=== PATIENT | female | born 1935 | race Two or more races ===

== ENCOUNTER 2024-08-05 22:54 | Inpatient (IN) | payer OTHER, MEDICAID ==
[~2024-08-05] VITALS: Ht 149.9 cm; Wt 98.0 kg
--- NOTE | 2024-08-05 23:16 | ED.PDOC ---
History of Present Illness HPI Comments 88-year-old female who came to ER via EMS for generalized weakness. Per EMS, patient was picked up at home, and does have history of AFib, HTN, diabetes and dementia. Pt. did take her blood pressure meds today. Pt. utilizes a beta marilu. Was noted by family members that for the past 2 days, patient has been generally weak, with episodes of nausea vomiting, diarrhea and loss of appetite. Was noted to be hypotensive and bradycardic. Upon arrival patient was 40s beats per minute and blood sugar on scene was 118 Chief Complaint: General Weakness Time Seen by MD: 23:16 Reviewed Notes: Nurses Notes, Copy Lathe Tender Notes Allergies: Coded Allergies: Vancomycin (Verified Allergy, Unknown, 08/05/24) Information Source: Patient, Emergency Med Personnel Mode of Arrival: EMS Severity: Moderate Timing: Days Duration: Since onset Prehospital treatment: None Past Medical History PAST MEDICAL HISTORY: AFIB, Dementia, DM, HTN Surgical History: Denies all surgeries TAX AGENT History: Denies all TAX AGENT Hx Family History Family History: Reviewed,noncontributory to illness Social History Smoker: Non-Smoker Alcohol: Denies ETOH Use Drugs: Denies Drug Use Lives In: Home Constitutional: reports: fatigue, weakness; denies: chills, diaphoresis, fever, malaise, sweats, others EENTM: denies: blurred vision, double vision, ear bleeding, ear discharge, ear drainage, ear pain, ear ringing, eye pain, eye redness, hearing loss, mouth pain, mouth swelling, nasal discharge, nose bleeding, nose congestion, nose pain, photophobia, tearing, throat pain, throat swelling, voice changes, others Respiratory: denies: cough, hemoptysis, orthopnea, SOB at rest, shortness of breath, SOB with excertion, stridor, wheezing, others Cardiovascular: denies: chest pain, dizzy spells, diaphoresis, Dyspnea on exertion, edema, irregular heart beat, left arm pain, lightheadedness, palpitations, PND, syncope, others Gastrointestinal: reports: diarrhea, nausea, vomiting; denies: abdomen distended, abdominal pain, blood streaked bowels, constipated, dysphagia, difficulty swallowing, hematemesis, melena, poor appetite, poor fluid intake, rectal bleeding, rectal pain, others Genitourinary: denies: abnormal vagina bleeding, burning, dyspareunia, dysuria, flank pain, frequency, hematuria, incontinence, pain, , vagina discharge, urgency, others Neurological: denies: dizziness, fainting, headache, left sided numbness, left sided weakness, numbness, paresthesia, pre-existing deficit, right sided numbness, right sided weakness, seizure, speech problems, tingling, tremors, weakness, others Musculoskeletal: denies: back pain, gout, joint pain, joint swelling, muscle pain, muscle stiffness, neck pain, others Integumetry: denies: bruises, change in color, change in hair/nails, dryness, laceration, lesions, lumps, rash, wounds, others Allergic/Immunocompromised: denies: Difficulty Healing, Frequent Infections, Hives, Itching, others Hematologic/Lymphatic: denies: anemia, blood clots, easy bleeding, easy bruising, swollen glands, others Endocrine: denies: excessive hunger, excessive sweating, excessive thirst, excessive urination, flushing, intolerance to cold, intolerance to heat, unexplained weight gain, unexplained weight loss, others Psychiatric: denies: anxiety, bipolar disorder, depression, hopeless, panic disorder, schizophrenia, sleepless, suicidal, others Unable to Obtain due to: Dementia Physical Exam General Appearance: Moderate Distress (Pt. apears ill at time of evaluation. A&O times 3. Pt. is lethargic), Normal HEENT: Normal ENT Inspection, Pharynx Normal, TMs Normal Neck: Full Range of Motion, Non-Tender, Normal, Normal Inspection Respiratory: Chest Non-Tender, Lungs Clear, No Accessory Muscle Use, No Respiratory Distress, Normal Breath Sounds Cardiovascular: Bradycardia, No Edema, No JVD, No Murmur, No Gallop, Normal Peripheral Pulses Breast Exam: Deferred Gastrointestinal: No Organomegaly, Non Tender, No Pulsatile Mass, Normal Bowel Sounds, Soft Genitalia: Deferred Pelvic: Deferred Rectal: Deferred Extremities: No calf tenderness, Normal capillary refill, Normal inspection, Normal range of motion, Non-tender, No pedal edema Musculoskeletal : Apperance: Normal Neurologic: Depressed Affect Cerebellar Function: NOT DONE Reflexes: NOT DONE Skin: Dry, Normal Color, Warm Lymphatic: No Adenopathy Was a procedure done? Was a procedure done?: No EKG EKG : Cardiac Rhythm: Afib Differential Dx Considerations may include: Anemia, electrolyte imbalance, urinary tract infection, hypotension, dehydration, dementia, generalized weakness, hypotension, Afib X-Ray, Labs, Meds, VS Vital Signs Date Time Temp Pulse Resp B/P (MAP) Pulse Ox O2 Delivery O2 Flow Rate FiO2 08/06/24 02:00 49 15 124/46 (72) 96 08/06/24 01:00 50 17 115/45 (68) 99 08/06/24 00:00 43 18 107/56 (73) 98 08/05/24 23:51 56 08/05/24 23:23 43 13 99 Room Air* 0 21 08/05/24 23:23 97.9 43 13 102/38 (59) 99 97.9 08/05/24 23:03 47 08/05/24 22:54 97.5 48 16 138/47 (77) 100 Lab Test 08/06/24 00:10 08/05/24 23:29 Range/Units Troponin I High Sensitivity 13 15 </=34 ng/L White Blood Count 13.1 H 4.4-10.8 10^3/uL Red Blood Count 4.71 4.0-5.20 10^6/uL Hemoglobin 15.3 12.2-16.2 g/dL Hematocrit 45.2 36.0-46.0 % Mean Corpuscular Volume 95.8 80.0-100.0 fL Mean Corpuscular Hemoglobin 32.5 H 28.0-32.0 pg Mean Corpuscular Hemoglobin Concent 33.9 32.0-36.0 g/dL Red Cell Distribution Width 15.9 H 11.8-14.3 % Platelet Count 156 140-450 10^3/uL Mean Platelet Volume 9.7 6.9-10.8 fL Neutrophils (%) (Auto) 54.7 37.0-80.0 % Lymphocytes (%) (Auto) 31.6 10.0-50.0 % Monocytes (%) (Auto) 9.0 0.0-12.0 % Eosinophils (%) (Auto) 3.9 0.0-7.0 % Basophils (%) (Auto) 0.8 0.0-2.0 % Neutrophils # (Auto) 7.2 1.6-8.6 10 ^3/uL Lymphocytes # (Auto) 4.1 0.4-5.4 10 ^3/uL Monocytes # (Auto) 1.2 0-1.3 10 ^3/uL Eosinophils # (Auto) 0.5 0-0.8 10 ^3/uL Basophils # (Auto) 0.1 0-0.2 10 ^3/uL Nucleated Red Blood Cells 0.1 % Sodium Level 143 136-145 mmol/L Potassium Level 3.3 L 3.5-5.1 mmol/L Chloride Level 109 H 98-107 mmol/L Carbon Dioxide Level 29 20-31 mmol/L Anion Gap 5 5-15 Blood Urea Nitrogen 23 9-23 mg/dL Creatinine 1.37 H 0.550-1.02 mg/dL Glomerular Filtration Rate Calc 37 >90 mL/min BUN/Creatinine Ratio 16.8 10.0-20.0 Serum Glucose 101 74-106 mg/dL Lactic Acid Level 1.9 0.4-2.0 mmol/L Calcium Level 9.4 8.7-10.4 mg/dL Total Bilirubin 1.8 H 0.2-1.0 mg/dL Aspartate Amino Transferase (AST) 23 13-40 U/L Alanine Aminotransferase (ALT) 19 7-40 U/L Alkaline Phosphatase 113 46-116 U/L B-Type Natriuretic Peptide 174.14 0-100 pg/mL Total Protein 6.3 5.7-8.2 g/dL Albumin 3.7 3.2-4.8 g/dL Lipase 141 H 12-53 U/L Current Medications Medications (Trade) Dose Ordered Sig/Gianna Route Start Time Stop Time Status Last Admin Sodium Chloride 1,000 ml @ 150 mls/hr Q6H40M ONCE IV 08/05/24 23:15 08/06/24 05:54 08/05/24 23:34 CHEST RADIOGRAPH FINDINGS: Lines and Tubes: None Lungs: Clear Pleura: No effusion. No pneumothorax. Cardiomediastinal contours: Unremarkable Bones: Unremarkable IMPRESSION: 1. No acute disease. X-Ray, Labs, Meds, VS Comment All studies performed at the ED today were reviewed by me personally. EKG showed a bradycardic Afib with possible ischemia. Rate of 47 with a QT interval of 545. No ST elevation. Laboratories were relatively unremarkable nwith a mild elev. WBC and Lipase. CT of abdomen pending at time of this note. CXR was unremarkable for any consolidation or intrapulmonary concerns. Pt. will be admitted for bradycardia and general weakness concerns. Patient VS were discussed with Dr. Martinez. No intervention at this time. CT abdomen will be reviewed by Dr. Martinez when returned. Time of 1ST Reevaluation: 02:31 Reevaluation 1ST: Unchanged Consultation: PCP, Cardiology Patient Education/Counseling: Diagnosis, Treatment, Other (Patient has dementia) Family Education/Counseling: Diagnosis, Treatment, No Family Present Departure 1 Departure Time of Disposition: 02:33 Impression: Primary Impression: Bradycardia Additional Impression: General weakness Disposition: ADMITTED INPATIENT Condition: Fair Discharged With: Self, Relative Critical Care Note Critical Care Time?: No Stability Stability form required: No Heart Score Heart Score: Heart Score Response (Comments) Value History Moderate Suspicious 1 EKG Repolarization Disturb 1 Age >65 2 Risk Factors >3 or Hx ASHD 2 Troponin Normal limit 0 Total 6 I personally scribed for UMM MADRID PAC ([email or web address]) on 08/05/24 at 23:16. Electronically submitted by Meng Schuler ([email or web address]). I personally scribed for UMM MADRID PAC ([email or web address]) on 08/06/24 at 00:28. Electronically submitted by Meng Schuler ([email or web address]). UMM MADRID PAC Aug 05, 2024 23:16
[2024-08-05 23:23] VITALS: PULSE 43; RESP 13; O2SAT 99
[2024-08-05] MEDS: SODIUM CHLORIDE 0.9% 1,000 ML IV ONE (23:34)
[2024-08-05 23:46] LABS: Basophils # (auto) 0.1 10 ^3/uL (0-0.2); Basophils % (auto) 0.8 % (0.0-2.0); Eosinophils # (auto) 0.5 10 ^3/uL (0-0.8); Eosinophils % (auto) 3.9 % (0.0-7.0); Hematocrit 45.2 % (36.0-46.0); Hemoglobin 15.3 g/dL (12.2-16.2); Lymphocytes # (auto) 4.1 10 ^3/uL (0.4-5.4); Lymphocytes % (auto) 31.6 % (10.0-50.0); Mean Corpuscular Hemoglobin 32.5 pg (28.0-32.0); Mean Corpuscular Hgb Conc. 33.9 g/dL (32.0-36.0); Mean Corpuscular Volume 95.8 fL (80.0-100.0); Monocytes # (auto) 1.2 10 ^3/uL (0-1.3); Neutrophils # (auto) 7.2 10 ^3/uL (1.6-8.6); Neutrophils % (auto) 54.7 % (37.0-80.0); Nucleated Red Blood Cells % 0.1 %; Platelet Count (auto) 156 10^3/uL (140-450); Red Blood Cells 4.71 10^6/uL (4.0-5.20); Red Cell Distribution Width 15.9 % (11.8-14.3); White Blood Cell 13.1 10^3/uL (4.4-10.8)
[2024-08-06] VITALS (11 sets, daily range): BP systolic 113–133; BP diastolic 52–59; PULSE 37–65; RESP 12–20; TEMP 97.3–98.4; O2SAT 95–99
--- NOTE | 2024-08-06 00:09 | DVH ---
CHEST RADIOGRAPH Indication:SOB Technique: Single frontal view of the chest was obtained COMPARISON: None FINDINGS: Lines and Tubes: None Lungs: Clear Pleura: No effusion. No pneumothorax. Cardiomediastinal contours: Unremarkable Bones: Unremarkable IMPRESSION: 1. No acute disease.
[2024-08-06 00:11] LABS: Alanine Aminotransferase 19 U/L (7-40); Albumin 3.7 g/dL (3.2-4.8); Alkaline Phosphatase 113 U/L (46-116); Anion Gap 5 (5-15); Aspartate Aminotransferase 23 U/L (13-40); BUN/Creatinine Ratio 16.8 (10.0-20.0); Bilirubin, Total 1.8 mg/dL (0.2-1.0); Blood Urea Nitrogen 23 mg/dL (9-23); Calcium 9.4 mg/dL (8.7-10.4); Carbon Dioxide 29 mmol/L (20-31); Chloride 109 mmol/L (98-107); Glucose 101 mg/dL (74-106); Lipase 141 U/L (12-53); Potassium 3.3 mmol/L (3.5-5.1); Sodium 143 mmol/L (136-145); Total Protein 6.3 g/dL (5.7-8.2)
[2024-08-06] MEDS ORDERED: ONDANSETRON HCL 4 MG/2 ML VIAL IV PRN (03:00)
[2024-08-06] MEDS ORDERED: NITROGLYCERIN 0.4 MG SL TAB SL PRN (03:00)
[2024-08-06] MEDS ORDERED: MORPHINE SULFATE INJ 2 MG/ml SYRG IV PRN (03:00)
[2024-08-06] MEDS ORDERED: DOCUSATE SOD 100 MG CAP PO PRN (03:00)
[2024-08-06] MEDS ORDERED: ACETAMINOPHEN 325 MG TAB PO PRN (03:00)
[2024-08-06] MEDS ORDERED: DEXTROSE (50%) 50ML SYRG IV PRN (03:00)
--- NOTE | 2024-08-06 03:01 | DVHHP2 ---
History of Present Illness Reason for Visit: Generalized weakness History of Present Illness The patient is a 88-year-old female with past medical history of AFib, dementia, DM, and hypertension who presented to [facility] ED for evaluation of generalized weakness. Patient was noted by family for the past 2 days with generalized weakness, episodes of nausea, vomiting, diarrhea, loss of appetite, getting worse today that prompted this visit. Patient was seen and evaluated in the ED, laboratory data shows WBC 13.1, platelets 156, sodium 143, potassium 3.3, BUN 23, creatinine 1.37, glucose 101, troponin 15, total bilirubin 1.8, BNP 174.14, lipase 141, blood pressure 124/46, heart rate 50, temperature 97.9 F, O2 saturation 96% on room air. Chest x-ray show no acute disease. On my assessment, patient denies chest pain, no headache, no dizziness, no diaphoresis, no shortness a breath, no nausea, no vomiting, no fever, no chills. Patient was admitted for further evaluation and medical management. Past Medical History AFIB, Dementia, DM, HTN Past Surgical History Denies all surgeries Family History Reviewed, noncontributory to the management of this case. Past Social History The patient lives at home, denies smoking, alcohol or illicit drugs abuse. Review of Systems Constitutional: Yes: Weakness, Other (Fatigue); No: Fever, Chills, Sweats, Malaise Eyes: No: Pain, Vision change, Conjunctivae inflammation, Eyelid inflammation, Other, Redness ENT: No: Ear pain, Ear discharge, Nose pain, Nose discharge, Nose congestion, Mouth pain, Mouth swelling, Throat pain, Throat swelling, Other Respiratory: No: Cough, Dry, Shortness of breath, SOB with excertion, Wheezing, Hemoptysis, Pleuritic Pain, Sputum, Wheezing, Other Cardiovascular: No: Chest Pain, Palpitations, Orthopnea, Paroxysmal Noc. Dyspnea, Edema, Lt Headedness, Other Gastrointestinal: Nausea, Vomiting, Diarrhea; No: Abdominal Pain, Constipation, Melena, Hematochezia, Other Genitourinary: No Dysuria, No Frequency, No Incontinence, No Hematuria, No Retention, No Other Musculoskeletal: No: other, neck pain, shoulder pain, arm pain, back pain, hand pain, leg pain, foot pain Skin: No: Rash, Lesions, Jaundice, Bruising, Other Neurological: No: Weakness, Numbness, Incoordination, Change in speech, Confusion, Seizures, Other Allergies: Coded Allergies: Vancomycin (Verified Allergy, Unknown, 08/05/24) Medications Current Medications Medications Dose Ordered Sig/Gianna Route Start Time Stop Time Status Last Admin Dose Admin Ceftriaxone Sodium 50 ml @ 100 mls/hr DAILY@09 IV 08/06/24 09:00 UNV Donepezil HCl 10 mg HS PO 08/06/24 22:00 UNV Atorvastatin Calcium 10 mg HS PO 08/06/24 22:00 UNV Apixaban 2.5 mg BID PO 08/06/24 10:00 UNV Diagnostic Test (Pha) 1 strip ACHS 08/06/24 07:00 UNV Insulin Human Regular ACHS SC 08/06/24 07:00 UNV Dextrose 50 ml UD PRN IV 08/06/24 03:00 UNV Sodium Chloride 10 ml Q8HR IV 08/06/24 06:00 UNV Acetaminophen/ Hydrocodone Bitart 1 tab Q4HP PRN PO 08/06/24 03:00 UNV Ondansetron HCl 4 mg Q4HP PRN IV 08/06/24 03:00 UNV Docusate Sodium 100 mg BIDPRN PRN PO 08/06/24 03:00 UNV Acetaminophen 650 mg Q6HP PRN PO 08/06/24 03:00 UNV Nitroglycerin 0.4 mg Q5MINP PRN SL 08/06/24 03:00 UNV Morphine Sulfate 2 mg Q30M PRN IV 08/06/24 03:00 UNV Exam Vital Signs Vital Signs Date Time Temp Pulse Resp B/P (MAP) Pulse Ox O2 Delivery O2 Flow Rate FiO2 08/06/24 02:00 49 15 124/46 (72) 96 08/05/24 23:23 Room Air* 0 21 08/05/24 23:23 97.9 97.9 General Appearance: Alert, Oriented X3, Cooperative, No acute distress HEENT: Atraumatic, PERRLA, EOMI, Mucous membr. moist/pink Respiratory: Clear to auscultation, Normal air movement Cardiovascular: Regular rate, Normal S1, Normal S2, No murmurs Abdominal: Normal bowel sounds, Soft, No tenderness, No hepatospenomegaly, No masses Extremities: No clubbing, No cyanosis, No edema, Normal pulses, No tenderness/swelling Skin: No rashes, No breakdown, No significant lesion Neuro: Normal speech, Normal tone, Sensation intact, Cranial nerves 3-12 NL, Reflexes 2+, Other (Generalized weakness) Psych/Mental Status: Mental status NL, Mood NL Labs/Xrays Labs Test 08/06/24 00:10 08/05/24 23:29 Range/Units Troponin I High Sensitivity 13 </=34 ng/L White Blood Count 13.1 H 4.4-10.8 10^3/uL Red Blood Count 4.71 4.0-5.20 10^6/uL Hemoglobin 15.3 12.2-16.2 g/dL Hematocrit 45.2 36.0-46.0 % Mean Corpuscular Volume 95.8 80.0-100.0 fL Mean Corpuscular Hemoglobin 32.5 H 28.0-32.0 pg Mean Corpuscular Hemoglobin Concent 33.9 32.0-36.0 g/dL Red Cell Distribution Width 15.9 H 11.8-14.3 % Platelet Count 156 140-450 10^3/uL Mean Platelet Volume 9.7 6.9-10.8 fL Neutrophils (%) (Auto) 54.7 37.0-80.0 % Lymphocytes (%) (Auto) 31.6 10.0-50.0 % Monocytes (%) (Auto) 9.0 0.0-12.0 % Eosinophils (%) (Auto) 3.9 0.0-7.0 % Basophils (%) (Auto) 0.8 0.0-2.0 % Neutrophils # (Auto) 7.2 1.6-8.6 10 ^3/uL Lymphocytes # (Auto) 4.1 0.4-5.4 10 ^3/uL Monocytes # (Auto) 1.2 0-1.3 10 ^3/uL Eosinophils # (Auto) 0.5 0-0.8 10 ^3/uL Basophils # (Auto) 0.1 0-0.2 10 ^3/uL Nucleated Red Blood Cells 0.1 % Sodium Level 143 136-145 mmol/L Potassium Level 3.3 L 3.5-5.1 mmol/L Chloride Level 109 H 98-107 mmol/L Carbon Dioxide Level 29 20-31 mmol/L Anion Gap 5 5-15 Blood Urea Nitrogen 23 9-23 mg/dL Creatinine 1.37 H 0.550-1.02 mg/dL Glomerular Filtration Rate Calc 37 >90 mL/min BUN/Creatinine Ratio 16.8 10.0-20.0 Serum Glucose 101 74-106 mg/dL Lactic Acid Level 1.9 0.4-2.0 mmol/L Calcium Level 9.4 8.7-10.4 mg/dL Total Bilirubin 1.8 H 0.2-1.0 mg/dL Aspartate Amino Transferase (AST) 23 13-40 U/L Alanine Aminotransferase (ALT) 19 7-40 U/L Alkaline Phosphatase 113 46-116 U/L B-Type Natriuretic Peptide 174.14 0-100 pg/mL Total Protein 6.3 5.7-8.2 g/dL Albumin 3.7 3.2-4.8 g/dL Lipase 141 H 12-53 U/L PATIENT: JOCELYN KOHLI DEACCT: [id number] UNIT: [id number] : 1935 LOC: ER ROOM / BED: / AGE / SEX: 88 / F ADM STATUS: REG ER SERVICE 01 ORDERING PHYSICIAN: UMM MADRID PAC PROCEDURE(s): CXRP - CHEST PORTABLE REASON: SOB ORDER NUMBER(s): [id number], ACCESSION NUMBER(s): [id number] CHEST RADIOGRAPH Indication:SOB Technique: Single frontal view of the chest was obtained COMPARISON: None FINDINGS: Lines and Tubes: None Lungs: Clear Pleura: No effusion. No pneumothorax. Cardiomediastinal contours: Unremarkable Bones: Unremarkable IMPRESSION: 1. No acute disease. Assessment/Plan Assessment/Plan Bradycardia Hypokalemia Pancreatitis Leukocytosis, unspecified Generalized weakness Plan 1. Admit to telemetry unit 2. Breathing treatment 3. Pain control management 4. IV antibiotic management 5. Management of fluids and electrolytes 6. Consultation for hospitalist 7. Diagnostic test chest x-ray 8. DVT prophylaxis-on Eliquis 9. Repeat labs CBC, CMP in a.m. 10. Home medication reviewed and reconciled 11. Continue with current medical management 12. Treatment plan discussed with patient and RN. Patient verbalized understanding. Plan discussed with: Patient, Other (RN) My Orders Orders - DRE PABLO DNP Procedure Category Date Status Time Complete Blood Count LAB 08/06/24 Logged 04:00 Comprehensive LAB 08/06/24 Logged Metabolic Panel 04:00 Ceftriaxone 1gm/50ml PHA 08/06/24 Logged D5w (Rocephin) 09:00 Ceftriaxone 1gm/50ml PHA 08/06/24 Logged D5w (Rocephin) 03:00 Potassium Er Tablet PHA 08/06/24 Logged (Klor-Con Tablet) 03:00 Donepezil Tablet PHA 08/06/24 Logged (Aricept Tablet) 22:00 Atorvastatin (Lipitor) PHA 08/06/24 Logged 22:00 Consistent DIET 08/06/24 Transmitted Carb(Ccho)Diabetes Breakfast Apixaban (Eliquis) PHA 08/06/24 Logged 10:00 Glucose Blood PHA 08/06/24 Logged (Accu-Chek Comfort 07:00 Insulin R (Human) PHA 08/06/24 Logged (Insulin R) 07:00 Dextrose 50% Syringe PHA 08/06/24 Logged 03:00 Admit ADMIT 08/06/24 Transmitted 02:46 Allergies JONATHAN 08/06/24 In Process 02:46 Code Status CODE 08/06/24 Transmitted 02:46 Sodium Chloride Lock PHA 08/06/24 Logged (Saline Lock Ns) 06:00 Oxygen Per Hour RT 08/06/24 Transmitted 02:46 Hydrocodone-Acet PHA 08/06/24 Logged 5/325mg Tab (Kelso 03:00 Ondansetron Hcl PHA 08/06/24 Logged (Zofran) 03:00 Docusate Sodium PHA 08/06/24 Logged Capsule (Colace 03:00 Fall Risk Precautions JONATHAN 08/06/[address] 02:46 Complete Blood Count LAB 08/07/24 Verified 04:00 Comprehensive LAB 08/07/24 Verified Metabolic Panel 04:00 Condition: Serious JONATHAN 08/06/24 In Process 02:46 Acetaminophen Tablet PHA 08/06/24 Logged (Tylenol Tablet) 03:00 Sequential JONATHAN 08/06/24 In Process Compression Device Nitroglycerin PHA 08/06/24 Logged Sublingual (Ntrostat 03:00 Morphine Sulfate PHA 08/06/24 Logged Injection 03:00 Notify Of Changes JONATHAN 08/06/24 In Process From Base 02:46 Computer Laboratory Technician For JONATHAN 08/06/24 In Process 24 Hours 02:46 Emergency Dysrhythmia [facility] 08/06/24 In Process Protocol 02:46 Rhythm Strips Once [facility] 08/06/24 In Process Every Shift 02:46 Oxygen By Nasal RT 08/06/24 Transmitted Cannula 02:46 Problem List: (1) Bradycardia (2) Leukocytosis, unspecified (3) Pancreatitis (4) Hypokalemia (5) Generalized weakness Date of Service: Aug 06, 2024 Billing Provider: DRE PABLO DNP Common Visit Codes: [id number] INP/OBS CARE (HIGH) DRE PABLO DNP Aug 06, 2024 03:01
[2024-08-06] MEDS: cefTRIAXone 1GM/50ML D5W 50 ML IV ONE (03:31)
[2024-08-06] MEDS: POTASSIUM CHL 20 Meq TABLET PO ONE (03:31)
--- NOTE | 2024-08-06 04:04 | DVH ---
Examination: ABPL CLINICAL INDICATION:elevated lipase COMPARISON: None. CONTRAST USED: None. TECHNIQUE: Plain CT study of the abdomen and pelvis was performed using 5 mm thin slices, with ALARA (As Low as Reasonably Achievable) protocol. Multiplanar reconstructions were obtained. FINDINGS: CT ABDOMEN Lung Bases: No focal infiltrates or pleural effusion. Borderline cardiomegaly. Subsegmental atelec tasis in bilateral lower lobes, left more than right. Liver: Normal size and attenuation. No focal liver lesions or intrahepatic biliary dilatation. Gallbladder: Appears unremarkable. No intraluminal pathology. Common bile duct is not dilated. Pancreas: Normal in size and shape, without focal lesions. Peripancreatic fat planes are clear. Spleen: Normal size, no focal abnormalities. 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 Retroperitoneum: Adrenal glands are normal in size and morphology. No significant retroperitoneal l ymphadenopathy. Kidneys: Normal in size. No renal calculi or hydronephrosis. Clear perinephric spaces. Vessels: Limited in evaluation; due to lack of intravenous contrast, vessels cannot be adequately as sessed. Atherosclerotic calcification of the abdominal aorta and visceral arteries, infrarenal aorta , and common iliac arteries. IVC is not dilated. Stomach and Bowel: No abnormalities in bowel loops. No ascites. Skeletal System: Mild osteopenia with degenerative changes in the bilateral superolateral hip joints , sacroiliac joints, and lumbar spine. Orthopedic implant in the left femoral neck. Minimal anterol isthesis of L4 over L5. CT PELVIS Appendix: Visualized, appears unremarkable. Bladder: Unremarkable. Reproductive Organs: Uterus and ovaries are atrophic, with no adnexal mass. A small, 7 mm, fat-atte nuation lesion in the uterine fundus, likely a fibroid with fatty degeneration. Tiny air locules in the endometrial cavity. Colon: Short segment concentric wall thickening (10 mm) in the rectum over approximately 5.5 cm with mild perirectal fat stranding. No enlarged perirectal lymph nodes. This may suggest neoplastic thi ckening. Moderate fecal residue in large bowel loops. Small bowel loops are unremarkable, with no signs of ob struction. IMPRESSION: 1. Short segment concentric wall thickening involving the rectum with mild perirectal fat stranding; neoplastic etiology cannot be excluded. Suggest further evaluation with post-contrast scan and colo noscopy correlation. 2. Gallbladder, pancreas and appendix appear unremarkable. No evidence of renal or ureteric calculu s or hydronephrosis. 3. 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 Atherosclerotic calcificatio n of the abdominal aorta and visceral arteries. 4. Atrophic uterus and ovaries. Small probable fibroid with fatty degeneration in the uterine fundu s. 5. Mild osteopenia with degenerative changes in the sacroiliac and hip joints, as well as multilevel lumbar spine arthropathy. Orthopedic implant in the left femoral neck. 6. Subsegmental atelectasis in the bilateral lower lobes, left greater than right. Borderline cardio megaly with scattered coronary artery calcifications. Electronically Signed 08/06/2024 03:56 Becky Ye
[2024-08-06] MEDS: SODIUM CHLOR 0.9% PF (SALINE LOCK) 10ML VIAL/SYR IV SCH (05:40)
[2024-08-06 05:50] LABS: Basophils # (auto) 0.1 10 ^3/uL (0-0.2); Basophils % (auto) 0.9 % (0.0-2.0); Eosinophils # (auto) 0.4 10 ^3/uL (0-0.8); Eosinophils % (auto) 4.1 % (0.0-7.0); Hematocrit 45.6 % (36.0-46.0); Hemoglobin 15.1 g/dL (12.2-16.2); Lymphocytes # (auto) 3.9 10 ^3/uL (0.4-5.4); Lymphocytes % (auto) 35.9 % (10.0-50.0); Mean Corpuscular Hemoglobin 32.1 pg (28.0-32.0); Mean Corpuscular Volume 97.1 fL (80.0-100.0); Monocytes # (auto) 0.9 10 ^3/uL (0-1.3); Monocytes % (auto) 8.5 % (0.0-12.0); Neutrophils # (auto) 5.4 10 ^3/uL (1.6-8.6); Neutrophils % (auto) 50.6 % (37.0-80.0); Nucleated Red Blood Cells % 0.2 %; Platelet Count (auto) 142 10^3/uL (140-450); White Blood Cell 10.7 10^3/uL (4.4-10.8)
[2024-08-06 06:05] LABS: Alanine Aminotransferase 18 U/L (7-40); Albumin 3.4 g/dL (3.2-4.8); Alkaline Phosphatase 108 U/L (46-116); Anion Gap 7 (5-15); Aspartate Aminotransferase 23 U/L (13-40); BUN/Creatinine Ratio 16.1 (10.0-20.0); Bilirubin, Total 1.4 mg/dL (0.2-1.0); Blood Urea Nitrogen 20 mg/dL (9-23); Calcium 9.2 mg/dL (8.7-10.4); Carbon Dioxide 28 mmol/L (20-31); Chloride 110 mmol/L (98-107); Glucose 84 mg/dL (74-106); Potassium 3.4 mmol/L (3.5-5.1); Sodium 145 mmol/L (136-145); Total Protein 6.2 g/dL (5.7-8.2)
[2024-08-06] MEDS: ACCU-CHEK COMFORT CURVE STRIP VI SCH (06:38)
[2024-08-06] MEDS: InsuLIN REG 1unit/0.01ml Soln (100units/ml) SC SCH (06:38)
--- NOTE | 2024-08-06 06:45 | ECG ---
[facility] Test Date: 2024-08-05 Test Time: 23:03:48 Pat Name: JOCELYN KOHLI Department: ER Room: 0204T Gender: F Manager Of Community Relations: CAIO : 1935 Requested By: UMM MADRID Order Number: [id number] Reading MD: Jacky Carter Measurements Intervals Kress Rate: 47 P: 0 IL: 0 QRS: 55 QRSD: 88 T: 143 QT: 545 QTc: 482 Interpretive Statements Atrial fibrillation Ventricular premature complex Repol abnrm suggests ischemia, diffuse leads Electronically Signed On 08-06-2024 9:50:38 PDT by Jacky Carter Please click the below link to view image of tracing.
[2024-08-06 08:39] LABS: Urine Bacteria None Seen /hpf (None Seen)
[2024-08-06 09:09] LABS: Urine Blood Negative /uL (Negative); Urine Clarity Clear (Clear); Urine Color Light-Yellow (Yellow); Urine Hyaline Cast FEW /lpf (0 - 2); Urine Protein, UAD Negative (Negative); Urine Urobilinogen Normal (Negative); Urine WBC 1 /hpf (0 - 5)
[2024-08-06 09:27] LABS: Magnesium 1.9 mg/dL (1.6-2.6)
[2024-08-06 09:41] LABS: INR 1.17 (0.9-1.15); Partial Thromboplastin Time 32.2 SEC (24.5-34.5); Prothrombin Time 12.3 sec (9.3-11.8)
[2024-08-06] MEDS ORDERED: ENOXAPARIN SOD 100 MG/1 ML SYRINGE SC SCH (10:00)
[2024-08-06] MEDS ORDERED: APIXABAN 5 MG TAB PO SCH (10:00)
[2024-08-06] MEDS ORDERED: APIXABAN 2.5 MG TAB PO SCH (10:00)
--- NOTE | 2024-08-06 11:04 | DVHINCON2 ---
Date Seen: Aug 06, 2024 Referring Physician Manjinder Blas NP Reason for Consultation Bradycardia History of Present Illness Fani Bower is a 88-year-old female patient who was brought to the ED because caregiver (son) saw patient had generalized weakness associated with low heart rate and low blood pressure three days before admission. Son also reports the patient has been having yellow nonbloody diarrhea five days prior to her admission, associated with decreased appetite. Obtain indirect history from son since patient has advanced dementia. Could not obtain review of systems due to clinical status of patient. Past medical history: Hypertension, diabetes, dyslipidemia, permanent atrial fibrillation (chads Vasc 5/has bled 3) and history of bilateral DVT under anticoagulation with apixaban, patient is almost completely bed-bound (so can mobilize her with wheelchair), breast cancer treated with radio therapy and c hemotherapy, recent admission due to gastroenteritis symptomatic by constipation (over at [facility]) Surgical history: Left lower limb deep vein Thrombectomy Family history: Two daughters with diabetes at age of 60s Social history: Lives in [place] with son. Denies current tobacco, alcohol and other drug abuse Allergies: Vancomycin (anaphylactic shock) Home medication: Apixaban 5 mg p.o. b.i.d., atorvastatin 20 mg p.o. daily, donepezil 5 mg p.o. daily, escitalopram 5 mg p.o. daily, furosemide 40 mg p.o. b.i.d., insulin glargine 30 units p.m., lisinopril 10 mg p.o. daily, metoprolol 25 mg p.o. daily, nitroglycerin p.r.n. Patient seen and examined at bedside. Currently has no new complaints. Past Medical History Per HPI Past Surgical History Per HPI Family History Per HPI Social History Per [facility] Allergies: Coded Allergies: Vancomycin (Verified Allergy, Unknown, 08/05/24) Current Medications Current Medications Medications (Trade) Dose Ordered Sig/Gianna Route PRN Reason Start Time Stop Time Status Last Admin Ceftriaxone Sodium 50 ml @ 100 mls/hr DAILY@0300 IV 08/07/24 03:00 Donepezil HCl (Aricept Tablet) 10 mg HS PO 08/06/24 22:00 Atorvastatin Calcium (Lipitor) 10 mg HS PO 08/06/24 22:00 Apixaban (Eliquis) 2.5 mg BID PO 08/06/24 10:00 UNV Diagnostic Test (Pha) (Accu-Chek Comfort Curve T) 1 strip ACHS 08/06/24 07:00 08/06/24 06:38 Insulin Human Regular (InsuLIN R) ACHS SC 08/06/24 07:00 Dextrose 50 ml UD PRN IV Blood Sugar LESS THAN 60 08/06/24 03:00 Sodium Chloride (Saline Lock Ns) 10 ml Q8HR IV 08/06/24 06:00 08/06/24 05:40 Acetaminophen/ Hydrocodone Bitart ([place] 5/325MG Tab) 1 tab Q4HP PRN PO MODERATE PAIN (4-6 PAIN SCALE) 08/06/24 03:00 Ondansetron HCl (Zofran) 4 mg Q4HP PRN IV NAUSEA / VOMITING 08/06/24 03:00 Docusate Sodium (Colace Capsule) 100 mg BIDPRN PRN PO FOR CONSTIPATION 08/06/24 03:00 Acetaminophen (Tylenol Tablet) 650 mg Q6HP PRN PO PAIN SCALE 1-3 OR TEMP>100.4 08/06/24 03:00 Nitroglycerin (Ntrostat Sublingual) 0.4 mg Q5MINP PRN SL FOR CHEST PAIN 08/06/24 03:00 Morphine Sulfate 2 mg Q30M PRN IV FOR CHEST PAIN 08/06/24 03:00 Apixaban (Eliquis) 5 mg BID PO 08/06/24 10:00 08/06/24 09:07 DC Enoxaparin Sodium (Lovenox) 80 mg Q12HR SC 08/06/24 10:00 UNV Review of Systems Per HPI Vital Signs Vital Signs Date Time Temp Pulse Resp B/P (MAP) Pulse Ox O2 Delivery O2 Flow Rate FiO2 08/06/24 09:50 57 08/06/24 09:21 Room Air* 0 21 08/06/24 09:20 98.2 20 113/52 (72) 99 98.2 Physical Exam Patient lying in bed, in no acute distress General: So, afebrile, mucosae are moist Cardiovascular: Normal S1 and S2. No murmurs, gallops or rubs Respiratory: Normal ventilation mechanics. Clear lung sounds on auscultation Abdomen: Soft, nontender, no organomegaly, normal bowel sounds MSK/skin: Mobilizes 4 limbs. Skin is dry and warm Neurological: Not oriented in any sphere. No motor no sensitive deficits. Pupils are isocoric and reactive Labs/Diagnostic Data Labs Test 08/06/24 08:19 08/06/24 06:35 08/06/24 05:21 08/06/24 00:10 Range/Units Urine Color Light-yellow Yellow Urine Clarity Clear Clear Urine pH 7.0 5.0-9.0 Urine Specific Alexander 1.010 1.001-1.035 Urine Protein Negative Negative Urine Ketones Negative Negative Urine Blood Negative Negative /uL Urine Nitrite Negative Negative Urine Bilirubin Negative Negative Urine Urobilinogen Normal Negative mg/dL Urine Leukocyte Esterase Negative Negative /uL Urine RBC 3 0 - 4 /hpf Urine WBC 1 0 - 5 /hpf Urine Squamous Epithelial Cells Few <5 /hpf Urine Bacteria None seen None Seen /hpf Urine Hyaline Casts Few 0 - 2 /lpf Urine Glucose Normal Normal mg/dL POC Glucose 82 70-106 mg/dl White Blood Count 10.7 4.4-10.8 10^3/uL Red Blood Count 4.70 4.0-5.20 10^6/uL Hemoglobin 15.1 12.2-16.2 g/dL Hematocrit 45.6 36.0-46.0 % Mean Corpuscular Volume 97.1 80.0-100.0 fL Mean Corpuscular Hemoglobin 32.1 H 28.0-32.0 pg Mean Corpuscular Hemoglobin Concent 33.0 32.0-36.0 g/dL Red Cell Distribution Width 16.0 H 11.8-14.3 % Platelet Count 142 140-450 10^3/uL Mean Platelet Volume 9.5 6.9-10.8 fL Neutrophils (%) (Auto) 50.6 37.0-80.0 % Lymphocytes (%) (Auto) 35.9 10.0-50.0 % Monocytes (%) (Auto) 8.5 0.0-12.0 % Eosinophils (%) (Auto) 4.1 0.0-7.0 % Basophils (%) (Auto) 0.9 0.0-2.0 % Neutrophils # (Auto) 5.4 1.6-8.6 10 ^3/uL Lymphocytes # (Auto) 3.9 0.4-5.4 10 ^3/uL Monocytes # (Auto) 0.9 0-1.3 10 ^3/uL Eosinophils # (Auto) 0.4 0-0.8 10 ^3/uL Basophils # (Auto) 0.1 0-0.2 10 ^3/uL Nucleated Red Blood Cells 0.2 % Prothrombin Time 12.3 H 9.3-11.8 sec Prothrombin Time INR 1.17 H 0.9-1.15 Activated Partial Thromboplast Time 32.2 24.5-34.5 SEC Sodium Level 145 136-145 mmol/L Potassium Level 3.4 L 3.5-5.1 mmol/L Chloride Level 110 H 98-107 mmol/L Carbon Dioxide Level 28 20-31 mmol/L Anion Gap 7 5-15 Blood Urea Nitrogen 20 9-23 mg/dL Creatinine 1.24 H 0.550-1.02 mg/dL Glomerular Filtration Rate Calc 42 >90 mL/min BUN/Creatinine Ratio 16.1 10.0-20.0 Serum Glucose 84 74-106 mg/dL Hemoglobin A1c 7.1 H <5.7 % A1C Calcium Level 9.2 8.7-10.4 mg/dL Phosphorus Level 3.0 2.4-5.1 mg/dL Magnesium Level 1.9 1.6-2.6 mg/dL Total Bilirubin 1.4 H 0.2-1.0 mg/dL Aspartate Amino Transferase (AST) 23 13-40 U/L Alanine Aminotransferase (ALT) 18 7-40 U/L Alkaline Phosphatase 108 46-116 U/L Total Protein 6.2 5.7-8.2 g/dL Albumin 3.4 3.2-4.8 g/dL Triglycerides Level 101 < 150 mg/dL Cholesterol Level 127 < 200 mg/dL LDL Cholesterol 67 < 100 mg/dL HDL Cholesterol 44 40-59 mg/dL Vitamin B12 Level 756 211-911 pg/mL Vitamin D 25-Hydroxy 44.2 30.0-100 ng/mL Thyroid Stimulating Hormone (TSH) 1.07 0.55-4.78 uIU/mL Troponin I High Sensitivity 13 </=34 ng/L Test 08/05/24 23:29 Range/Units Lactic Acid Level 1.9 0.4-2.0 mmol/L B-Type Natriuretic Peptide 174.14 0-100 pg/mL Lipase 141 H 12-53 U/L Assessment Permanent atrial fibrillation with low ventricular response (chads Vasc 5/has bled 3) secondary hypercoagulability state - discontinued negative chronotropic medication History of Bilateral DVT - status post left thrombectomy Probable Gastroenteritis YUMI hemodynamically mediated Hypokalemia secondary to diarrhea Diabetes - uncontrolled (hemoglobin A1c 7.1%) Dyslipidemia Hypertension Dementia - status bed-bound History of breast cancer treated with radiotherapy and chemotherapy History of anaphylaxis secondary to vancomycin Plan/Recommendation Probable cause of AFib LVR secondary to metoprolol. Have had discontinue medication at this time. Patient is currently on telemetry Ordered echocardiogram Replenish electrolytes as needed Evaluate cause of diarrhea. Currently discontinued furosemide, requiring IV fluids. 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 Discussed plan with Dr. Liang, patient, family and nurses: We will continue patient on telemetry, discontinue negative chronotropic medication, on enoxaparin for anticoagulation therapy. Planning on completing washout., if effective we will not indicate beta-blockers as outpatient, if not effective patient may need pacemaker. We will continue to monitor patient. Per son, patient is full code. Plan discussed with: Patient, Son, Other (Nurses) Date of Service: Aug 06, 2024 Billing Provider: RONDA LIANG MD Cardiology Common Codes: [id number] INP/OBS CARE (High), [id number] CARE 30-74 MIN YU HYDE RESIDENT Aug 06, 2024 11:04
--- NOTE | 2024-08-06 12:40 | DVH ---
Bilateral lower extremity venous duplex Clinical History: Lower limb swelling Comparison: None Technique: Duplex Doppler evaluation of the deep venous systems of both lower extremities from the common femora l veins to the popliteal veins including color Doppler and spectral/pulsed waveform analysis was perf ormed. Findings: RIGHT SIDE: The common femoral vein demonstrates appropriate compressibility and waveform variability. There is compressibility/patency of the great saphenous vein at the proximal thigh. The femoral vein demonstrates appropriate compressibility and waveform variability. The deep femoral vein demonstrates appropriate compressibility and waveform variability. The popliteal vein demonstrates appropriate compressibility and waveform variability. There is normal compressibility at the tibioperoneal trunk. LEFT SIDE: The common femoral vein demonstrates appropriate compressibility and waveform variability. There is compressibility/patency of the great saphenous vein at the proximal thigh. The femoral vein demonstrates appropriate compressibility and waveform variability. The deep femoral vein demonstrates appropriate compressibility and waveform variability. The popliteal vein demonstrates appropriate compressibility and waveform variability. There is normal compressibility at the tibioperoneal trunk. Impression: 1. No right or left femoropopliteal venous thrombosis. HS:Y
[2024-08-06 12:55] LABS: Amphetamine Screen, Urine Neg (NEGATIVE); Barbiturate Scree,Urine Neg (NEGATIVE); Benzodiazephine Screen, Urine Neg (NEGATIVE); Cannabinoid Screen, Urine Neg (NEGATIVE); Cocaine Screen, Urine Neg (NEGATIVE); Opiate Scree,Urine Neg (NEGATIVE); Phencyclidine Screen, Urine Neg (NEGATIVE)
[2024-08-06] MEDS: SODIUM CHLORIDE 0.9% 1,000 ML IV SCH (14:22)
[2024-08-06] MEDS: MAGNESIUM OXIDE 400 MG TAB PO ONE (14:24)
[2024-08-06] MEDS: POTASSIUM EFFERVESENT TAB 25 MEQ PO ONE (14:25)
[2024-08-06] MEDS ORDERED: ATOR20TA50 PO (17:34)
[2024-08-06] MEDS ORDERED: APIX5TAB PO (17:34)
[2024-08-06] MEDS ORDERED: DONE5TAB80 PO (17:36)
[2024-08-06] MEDS ORDERED: ESCI1TAB36 PO (17:36)
[2024-08-06] MEDS ORDERED: FURO40TA4 PO (17:37)
[2024-08-06] MEDS ORDERED: METO25TA93 PO (17:40)
[2024-08-06] MEDS ORDERED: NITR0.4O2 PR (17:40)
[2024-08-06] MEDS ORDERED: INSU100I49 SC (17:40)
[2024-08-06] MEDS ORDERED: INSU100I70 SC (17:40)
[2024-08-06] MEDS: DONEPEZIL HYDROCHLORIDE 5 MG TAB PO SCH (21:12)
[2024-08-06] MEDS: ATORVASTATIN 20 MG TAB PO SCH (21:13)
[2024-08-06] MEDS: HYDROcodone-ACET 5/325MG TAB PO PRN (23:29)
[2024-08-07] VITALS (7 sets, daily range): BP systolic 122–153; BP diastolic 36–82; PULSE 56–82; RESP 16–20; TEMP 97.5–98.1; O2SAT 96–98
[2024-08-07] MEDS: MELATONIN 5 MG TAB ONE (00:27)
[2024-08-07] MEDS: MELATONIN 5 MG TAB PO SCH (00:31)
[2024-08-07] MEDS: cefTRIAXone 1GM/50ML D5W 50 ML IV SCH (03:00)
[2024-08-07 08:31] LABS: Basophils # (auto) 0.1 10 ^3/uL (0-0.2); Basophils % (auto) 1.1 % (0.0-2.0); Eosinophils # (auto) 0.2 10 ^3/uL (0-0.8); Eosinophils % (auto) 1.7 % (0.0-7.0); Hematocrit 43.7 % (36.0-46.0); Hemoglobin 14.6 g/dL (12.2-16.2); Lymphocytes # (auto) 2.6 10 ^3/uL (0.4-5.4); Lymphocytes % (auto) 29.2 % (10.0-50.0); Mean Corpuscular Hemoglobin 32.4 pg (28.0-32.0); Mean Corpuscular Hgb Conc. 33.5 g/dL (32.0-36.0); Mean Corpuscular Volume 96.5 fL (80.0-100.0); Monocytes # (auto) 0.9 10 ^3/uL (0-1.3); Monocytes % (auto) 9.7 % (0.0-12.0); Neutrophils # (auto) 5.2 10 ^3/uL (1.6-8.6); Neutrophils % (auto) 58.3 % (37.0-80.0); Nucleated Red Blood Cells % 0.1 %; Platelet Count (auto) 168 10^3/uL (140-450); Red Blood Cells 4.52 10^6/uL (4.0-5.20); Red Cell Distribution Width 15.7 % (11.8-14.3); White Blood Cell 8.9 10^3/uL (4.4-10.8)
[2024-08-07 08:48] LABS: Alanine Aminotransferase 18 U/L (7-40); Albumin 3.7 g/dL (3.2-4.8); Alkaline Phosphatase 117 U/L (46-116); Anion Gap 8 (5-15); Aspartate Aminotransferase 25 U/L (13-40); BUN/Creatinine Ratio 16.2 (10.0-20.0); Bilirubin, Total 1.4 mg/dL (0.2-1.0); Blood Urea Nitrogen 21 mg/dL (9-23); Calcium 9.6 mg/dL (8.7-10.4); Carbon Dioxide 26 mmol/L (20-31); Chloride 109 mmol/L (98-107); Glucose 123 mg/dL (74-106); Sodium 143 mmol/L (136-145); Total Protein 6.6 g/dL (5.7-8.2)
--- NOTE | 2024-08-07 10:03 | DVHDS2 ---
Discharge Summary Date of Admission Aug 06, 2024 at 02:46 Date of Discharge: Aug 07, 2024 Labs/Diagnostic Data: Laboratory Results Test 08/07/24 08:18 08/06/24 21:05 08/06/24 11:08 08/06/24 08:19 White Blood Count 8.9 10^3/uL (4.4-10.8) Red Blood Count 4.52 10^6/uL (4.0-5.20) Hemoglobin 14.6 g/dL (12.2-16.2) Hematocrit 43.7 % (36.0-46.0) Mean Corpuscular Volume 96.5 fL (80.0-100.0) Mean Corpuscular Hemoglobin 32.4 pg (28.0-32.0) Mean Corpuscular Hemoglobin Concent 33.5 g/dL (32.0-36.0) Red Cell Distribution Width 15.7 % (11.8-14.3) Platelet Count 168 10^3/uL (140-450) Mean Platelet Volume 9.4 fL (6.9-10.8) Neutrophils (%) (Auto) 58.3 % (37.0-80.0) Lymphocytes (%) (Auto) 29.2 % (10.0-50.0) Monocytes (%) (Auto) 9.7 % (0.0-12.0) Eosinophils (%) (Auto) 1.7 % (0.0-7.0) Basophils (%) (Auto) 1.1 % (0.0-2.0) Neutrophils # (Auto) 5.2 10 ^3/uL (1.6-8.6) Lymphocytes # (Auto) 2.6 10 ^3/uL (0.4-5.4) Monocytes # (Auto) 0.9 10 ^3/uL (0-1.3) Eosinophils # (Auto) 0.2 10 ^3/uL (0-0.8) Basophils # (Auto) 0.1 10 ^3/uL (0-0.2) Nucleated Red Blood Cells 0.1 % Sodium Level 143 mmol/L (136-145) Potassium Level 4.0 mmol/L (3.5-5.1) Chloride Level 109 mmol/L (98-107) Carbon Dioxide Level 26 mmol/L (20-31) Anion Gap 8 (5-15) Blood Urea Nitrogen 21 mg/dL (9-23) Creatinine 1.30 mg/dL (0.550-1.02) Glomerular Filtration Rate Calc 40 mL/min (>90) BUN/Creatinine Ratio 16.2 (10.0-20.0) Serum Glucose 123 mg/dL (74-106) Calcium Level 9.6 mg/dL (8.7-10.4) Total Bilirubin 1.4 mg/dL (0.2-1.0) Aspartate Amino Transferase (AST) 25 U/L (13-40) Alanine Aminotransferase (ALT) 18 U/L (7-40) Alkaline Phosphatase 117 U/L (46-116) Total Protein 6.6 g/dL (5.7-8.2) Albumin 3.7 g/dL (3.2-4.8) POC Glucose 207 mg/dl (70-106) Lactic Acid Level 1.7 mmol/L (0.4-2.0) Urine Color Light-yellow (Yellow) Urine Clarity Clear (Clear) Urine pH 7.0 (5.0-9.0) Urine Specific [place] 1.010 (1.001-1.035) Urine Protein Negative (Negative) Urine Ketones Negative (Negative) Urine Blood Negative /uL (Negative) Urine Nitrite Negative (Negative) Urine Bilirubin Negative (Negative) Urine Urobilinogen Normal mg/dL (Negative) Urine Leukocyte Esterase Negative /uL (Negative) Urine RBC 3 /hpf (0 - 4) Urine WBC 1 /hpf (0 - 5) Urine Squamous Epithelial Cells Few /hpf (<5) Urine Bacteria None seen /hpf (None Seen) Urine Hyaline Casts Few /lpf (0 - 2) Urine Glucose Normal mg/dL (Normal) Urine Opiates Screen Neg (NEGATIVE) Urine Fentanyl Screen Neg (NEGATIVE) Urine Barbiturates Screen Neg (NEGATIVE) Urine Phencyclidine Screen Neg (NEGATIVE) Urine Amphetamines Screen Neg (NEGATIVE) Urine Benzodiazepines Screen Neg (NEGATIVE) Urine Cocaine Screen Neg (NEGATIVE) Urine Cannabinoids Screen Neg (NEGATIVE) Test 08/06/24 05:21 08/06/24 00:10 08/05/24 23:29 Prothrombin Time 12.3 sec (9.3-11.8) Prothrombin Time INR 1.17 (0.9-1.15) Activated Partial Thromboplast Time 32.2 SEC (24.5-34.5) Hemoglobin A1c 7.1 % A1C (<5.7) Phosphorus Level 3.0 mg/dL (2.4-5.1) Magnesium Level 1.9 mg/dL (1.6-2.6) Triglycerides Level 101 mg/dL (< 150) Cholesterol Level 127 mg/dL (< 200) LDL Cholesterol 67 mg/dL (< 100) HDL Cholesterol 44 mg/dL (40-59) Vitamin B12 Level 756 pg/mL (211-911) Vitamin D 25-Hydroxy 44.2 ng/mL (30.0-100) Thyroid Stimulating Hormone (TSH) 1.07 uIU/mL (0.55-4.78) Troponin I High Sensitivity 13 ng/L (</=34) B-Type Natriuretic Peptide 174.14 pg/mL (0-100) Lipase 141 U/L (12-53) Other Laboratory Tests 08/07/24 08:18 Brief Hx & Hospital Course: 88-year-old female who was admitted for nausea and vomiting and diarrhea She has YUMI She was given IV fluids She has underlying dementia also After admission she had no more diarrhea She was also found with bradycardia, she takes metoprolol at home Her YUMI has improved with hydration Workup is mostly negative except for chronic changes appropriate for her age The son is at the bedside Is helping with feeding The family takes care of the patient at home She had a run of afib RVR this morning Cardiology recommends to continue B-Blockers Final diagnoses: Acute gastroenteritis Bradycardia due to beta blockers YUMI Diarrhea Hypokalemia secondary to diarrhea Type 2 diabetes Dyslipidemia History of hypertension Hypotension now, she has stopped taking lisinopril few weeks ago Atrial fibrillation The patient is stable for discharge today Discontinue the Ivan Physical therapy before she goes home Discussed with the son at the bedside Follow up his PCP as soon as possible Discussed with Cardiology, since she had Afib RVR, she needs to continue metoprolol for rate control Discontinue lisinopril Resume other home medications including Seroquel 150 mg daily and Aricept Condition at Discharge: Stable Final Diagnosis/Problems List Acute gastroenteritis, resolved Alzheimer's dementia Bradycardia due to beta blockers Discharge Disposition: Home SNF Discharge Will this Physician continue t: No Discharge Instruct/Medications Diet: Cardiac 2g Na,low cholest Activity: No Restrictions, As Tolerated Follow Up/Referral: PCP as soon as possible Medications: Same home medications but to discontinue metoprolol and lisinopril Discharge Statement: "Patient was advised to return to the ER or call 911 if any headaches, dizziness, shortness of breath, chest pain, abdominal pain, bleeding, fevers, or worsening of medical condition. Patient was counseled about treatment plan, medications, possible side effects, patientverbalized understanding. All questions were answered to the best of my ability. This discharge took greater then 30 minutes in planning, reviewing documentation, counseling the patient, and discussing with other team members." ASSESSMENT ASSESSMENT Assessment Acute gastroenteritis, resolved Alzheimer's dementia Bradycardia due to beta blockers Date of Service: Aug 07, 2024 Billing Provider: CHLOE MCKINNON MD Common Visit Codes: NOT BILLABLE CHLOE MCKINNON MD Aug 07, 2024 10:03
--- NOTE | 2024-08-07 15:16 | DVHPN2 ---
Consult Progress Note Subjective Review of Systems: Deferred (dementia) Objective vital signs Vital Sign Date Time Temp Pulse Resp B/P (MAP) Pulse Ox O2 Delivery O2 Flow Rate FiO2 08/07/24 14:05 98.1 66 18 98 08/07/24 13:49 122/36 (64) 08/07/24 08:00 Room Air* 0 21 Total Intake and Output 08/06/24 08/06/24 08/07/24 15:00 23:00 07:00 Intake Total 1190 ml 100 ml Output Total 300 ml 800 ml Balance 890 ml -700 ml medications Current Medications Medications Dose Ordered Sig/Gianna Route Start Time Stop Time Status Last Admin Dose Admin Ceftriaxone Sodium 50 ml @ 100 mls/hr DAILY@0300 IV 08/07/24 03:00 Donepezil HCl 10 mg HS PO 08/06/24 22:00 08/06/24 21:12 10 MG Atorvastatin Calcium 10 mg HS PO 08/06/24 22:00 08/06/24 21:13 10 MG Apixaban 2.5 mg BID PO 08/06/24 10:00 UNV Diagnostic Test (Pha) 1 strip ACHS 08/06/24 07:00 08/07/24 11:08 1 STRIP Insulin Human Regular ACHS SC 08/06/24 07:00 08/06/24 21:17 4 UNITS Dextrose 50 ml UD PRN IV 08/06/24 03:00 Sodium Chloride 10 ml Q8HR IV 08/06/24 06:00 08/07/24 05:36 10 ML Acetaminophen/ Hydrocodone Bitart 1 tab Q4HP PRN PO 08/06/24 03:00 08/06/24 23:29 1 TAB Ondansetron HCl 4 mg Q4HP PRN IV 08/06/24 03:00 Docusate Sodium 100 mg BIDPRN PRN PO 08/06/24 03:00 Acetaminophen 650 mg Q6HP PRN PO 08/06/24 03:00 Nitroglycerin 0.4 mg Q5MINP PRN SL 08/06/24 03:00 Morphine Sulfate 2 mg Q30M PRN IV 08/06/24 03:00 Enoxaparin Sodium 80 mg Q12HR SC 08/06/24 10:00 Hold Sodium Chloride 1,000 ml @ 60 mls/hr [id number] IV 08/06/24 10:45 08/06/24 14:22 60 MLS/HR Melatonin 5 mg HS PO 08/07/24 22:00 08/07/24 00:31 5 MG Quetiapine Fumarate 150 mg HS PO 08/07/24 22:00 Examination: CVS:Abnormal (Irregular rate) laboratory and microbiology Laboratory Tests 08/07/24 08:18 Test 08/07/24 08:18 Range/Units Serum Glucose 123 H 74-106 mg/dL Problem List/Assessment/Plan Problem List/Assessment/Plan Assessment Permanent atrial fibrillation with low ventricular response (chads Vasc 5/has bled 3) secondary hypercoagulability state - discontinued negative chronotropic medication History of Bilateral DVT - status post left thrombectomy Probable Gastroenteritis YUMI hemodynamically mediated Hypokalemia secondary to diarrhea Diabetes - uncontrolled (hemoglobin A1c 7.1%) Dyslipidemia Hypertension Dementia - status bed-bound History of breast cancer treated with radiotherapy and chemotherapy History of anaphylaxis secondary to vancomycin Plan/Recommendation Probable cause of AFib LVR secondary to metoprolol. restart metoprolol given tachy/marilyn syndrome Patient is currently on telemetry Ordered echocardiogram Replenish electrolytes as needed Evaluate cause of diarrhea. Currently discontinued furosemide, requiring IV fluids. 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 Case Discussed with Dr Duenas. There is no further cardiac work-up indicated at this time. Restart metoprolol given tachy/marilyn syndrome. Conservative management, no a good candidate for PPM. Thank you for allowing us to participate in this patient's care. Will sign off. This medical document was created using an electronic medical record system with voice recognition software and computerized dictation system. Although this document has been carefully reviewed, there might still be some phonetic and typographical errors. Occasional wrong-word or ``sound-alike substitutions may have occurred due to the inherent limitations of voice recognition software. These areas are purely typographical due to imperfections of the software programs and do not reflect any compromise in the patient's medical care. Please read the chart carefully and recognize, using context, where these substitutions have occurred. Plan discussed with: Patient, Son, Other (Nurses) Plan discussed with: Patient, Son Date of Service: Aug 07, 2024 Billing Provider: RONDA DUENAS MD Common Visit Codes: [id number] INP/OBS CARE(HIGH) [facility] Aug 07, 2024 15:15
[2024-08-07] MEDS ORDERED: QUEtiapine FUMARATE 100 MG TAB PO SCH (22:00)
== END 2024-08-07 15:25 | disposition home or self-care (01) | DRG 371 ==
LOC: ER 22:54 → EDBD 22:54 → TELE 08-06 02:46 → TELE-CENTR 08-06 09:05
PROVIDERS: ADMIT Internal Medicine Geriatric Medicine; ATTEND Internal Medicine Geriatric Medicine
DX: A04.9 Bacterial intestinal infection, unspecified (principal); K85.90 Acute pancreatitis without necrosis or infection, unspecified; I48.21 Permanent atrial fibrillation; N17.9 Acute kidney failure, unspecified; E87.6 Hypokalemia; F02.80 Dementia in other diseases classified elsewhere, unspecified severity, without behavioral disturbance, psychotic disturbance, mood disturbance, and anxiety; I49.5 Sick sinus syndrome; G30.9 Alzheimer's disease, unspecified; I95.9 Hypotension, unspecified; T50.995A Adverse effect of other drugs, medicaments and biological substances, initial encounter; E11.65 Type 2 diabetes mellitus with hyperglycemia; E78.5 Hyperlipidemia, unspecified; I10 Essential (primary) hypertension; Z99.3 Dependence on wheelchair; Z79.899 Other long term (current) drug therapy; Z88.1 Allergy status to other antibiotic agents; Z83.3 Family history of diabetes mellitus; Z92.3 Personal history of irradiation; Z92.21 Personal history of antineoplastic chemotherapy; Z86.718 Personal history of other venous thrombosis and embolism; Z74.01 Bed confinement status; Z85.3 Personal history of malignant neoplasm of breast; Y92.89 Other specified places as the place of occurrence of the external cause
CPT/HCPCS: 36415; 74176; 80053; 80061; 80307; 81001; 82306; 82607; 82962; 83036; 83605; 83690; 83735; 83880; 84100; 84443; 84484; 85025; 85610; 85730; 87086; 93005; 93970; 97163; G0378; J1815